=== PATIENT | male | born 1965 | race Hispanic/Latino ===

== ENCOUNTER 2024-03-07 10:30 | Emergency (ER) | payer SELFPAY ==
[2024-03-07 10:37] VITALS: BP 164/114
[2024-03-07 11:06] VITALS: BP 136/72
[2024-03-07 11:09] VITALS: BMI 47.9
[2024-03-07 11:19] LABS: % Basophils 0.9 % (0-2); % Eosinophils 5.5 % (0-6); % Immature Granulocytes 0.4 % (0-0.5); % Lymphocytes 32.7 % (20.5-51.1); % Monocytes 7.6 % (1.7-9.3); % Neutrophils 52.9 % (42.2-75.2); Absolute Basophils 0.1 10^3/uL (0-0.2); Absolute Eosinophils 0.4 10^3/uL (0-0.7); Absolute Lymphocytes 2.2 10^3/uL (1.2-3.4); Absolute Monocytes 0.5 10^3/uL (0.1-0.6); Absolute Neutrophils 3.5 10^3/uL (1.4-6.5); Hematocrit 44.8 % (39.0-52.0); Hemoglobin 15.6 g/dL (13.0-18.0); Mean Corp Hgb Conc. 34.8 g/dL (33.0-37.0); Mean Corpuscular Hgb 30.4 pg (27.0-31.0); Mean Corpuscular Volume 87.2 fL (80.0-94.0); Mean Platelet Volume 9.3 fL (7.4-10.4); Nucleated Red Blood Cells % 0 % (-); Platelet Count 232 10^3/uL (130-400); Red Blood Cell Count 5.14 10^6/uL (4.70-6.10); Red Cell Dist. Width 12.6 % (11.5-14.5); White Blood Cell Count 6.7 10^3/uL (4.8-10.8)
--- NOTE | 2024-03-07 11:34 | ED.GENMED ---
History of Present Illness
General
Chief Complaint: Chest Pain
Time Seen by Provider: 03/07/24 10:44
History of Present Illness
History of Present Illness:
58-year-old male with history of hypertension, diabetes presenting to the emergency department for episode of chest pain. Patient reports that he is a local truck driver for [employer], and prior to arrival he was in the car and had acute onset of midsternal chest
tightness symptoms lasted about 20 minutes, with associated nausea, some diaphoresis. Symptoms have since resolved. Denies known history of cardiac disease. Denies difficulty breathing. Denies any history of blood clots. Denies abdominal pain.
Denies any fever or cough. Denies additional acute medical complaints.
Phy Exam
Physical Exam
Physical Exam:
General: Well-appearing, no clinical signs of dehydration, nontoxic and in no acute distress
HEENT: protecting airway
Neck: appears supple
CV: Normal heart rate, regular rhythm
Resp: No accessory muscle use, no increased work of breathing, lungs clear to auscultation bilaterally
Abd: Soft and non-distended, no tenderness to palpation
Extremities: No deformities, no swelling
Neuro: alert, no focal neurologic deficit
: deferred
Rectal: deferred
Psych: Normal affect
Skin: Intact
Scores
Heart Score for Chest Pain Patients
STEMI patient?: No
History: Slightly or Non-Suspicious
ECG: Normal
Age: >45 - <65 years
Risk Factors: >/= 3 Risk Factors or History of CAD
Troponin: </= Normal Limit
Heart Score for Chest Pain Patients: 3
Heart Score Risk: 2.5% MACE over next 6 weeks
Course
Orders/Labs/Results
Orders:
Orders
03/07/24 10:31
Electrocardiogram (*1) Urgent
Reason for Study: Chest Pain
EKG- Treatment ONCE
03/07/24 11:06
CMP [Comprehensive Metabolic Panel] Urgent
Complete Blood Count/With Diff Urgent
Troponin I Urgent
03/07/24 14:00
Troponin I Urgent
Abnormal Lab Results
03/07/24
11:06
Glucose 140 H mg/dl
(70-99)
03/07/24 11:06
03/07/24 11:06
Vital Signs
Initial and Last Documented VS:
Initial Vital Signs
Temp Pulse Resp BP Pulse Ox
98.8 F 86 20 164/114 97
03/07/24 10:37 03/07/24 10:37 03/07/24 10:37 03/07/24 10:37 03/07/24 10:37
Last Documented Vital Signs
Temp Pulse Resp BP Pulse Ox
98.8 F 88 15 139/82 97
03/07/24 10:37 03/07/24 12:15 03/07/24 12:15 03/07/24 12:00 03/07/24 12:00
MDM/Problems Addressed
MDM/Problems Addressed:
58-year-old male with history of hypertension, diabetes, hyperlipidemia presenting to the emergency department for episode of chest tightness prior to arrival. Vital signs on arrival are significant for high blood pressure.
On exam, patient is resting comfortably, no acute distress, notes resolution of symptoms. EKG obtained, no STEMI criteria. No significant signs of acute ischemia. Patient however does have cardiac risk factors. For this reason we will obtain
laboratory analysis including troponin. Will continue to closely monitor
12:00 -initial troponin normal. Given patient's story and risk factors, will obtain second troponin.
12:20 -in discussion with patient, he is requesting to go home. He does not want to stay for the second troponin, and notes that he will follow-up with his acquisitions assistant. Patient is competent to make his own decisions, understands risks of not
staying for full recommended cardiac evaluation. Patient otherwise at this time is hemodynamically stable, improvement in his blood pressure. Strict return precautions were communicated to patient and patient verbalized understanding
*EKG
Interpreted by ED Provider?: Yes
EKG Intrepretation Date: 03/07/24
EKG Intrepretation Time: 11:37
Interpretation: normal
Comparison EKG: no comparison EKG present
Heart Rate: 90
Rate: normal
Rhythm: sinus
Rohwer: normal axis
Interval: normal interval
QRS Pattern: normal QRS
Ischemia: non-specific ST changes
*Critical Care Note
Total Time (30-74mins, 75-104mins- exclusive of procedures): Not Applicable
ED Attending Note
-
Portions of this chart may have been created with voice recognition software.� Occasional wrong word or��sound alike� substitutions may have occurred due to the inherent limitations of voice recognition software.
Discharge Plan
Departure
Referrals:
NONE,* [Family Provider] -
Interventions
Interventions:
*Risk Screen - Suicide Last Done: 03/07/24 10:37
*General Assessment Last Done: 03/07/24 11:09
*Neglect/Abuse Screening Last Done: 03/07/24 11:10
ED- Cardiac Assessment Last Done: 03/07/24 11:10
Discharge Date and Time
Print Language: CZECH
[2024-03-07 11:39] LABS: Troponin I < 0.012 ng/ml
[2024-03-07 11:40] LABS: ALT (SGPT) 43 U/L (0-50); AST (SGOT) 26 U/L (17-59); Albumin 4.6 g/dl (3.5-5.0); Alkaline Phosphatase 48 U/L (38-126); Blood Urea Nitrogen 18 mg/dl (9-20); Calcium 9.7 mg/dl (8.4-10.2); Carbon Dioxide 22 mmol/L (22-30); Chloride 99 mmol/L (98-107); Estimated Creatinine Clearance > 125 ml/min; Glucose 140 mg/dl (70-99); Potassium 4.4 mmol/L (3.5-5.1); Sodium 136 mmol/L (135-145); Total Bilirubin 0.5 mg/dl (0.2-1.3); Total Protein 7.3 g/dl (6.3-8.2); eGFR > 60.00
[2024-03-07 12:00] VITALS: BP 139/82
== END 2024-03-07 12:44 | disposition home or self-care (01) ==
LOC: EMR 10:30
PROVIDERS: Emergency Medicine; EMERGENCY PHYSICIAN Student in an Organized Health Care Education/Training Program
DX: R07.89 Other chest pain (principal); I10 Essential (primary) hypertension; E11.9 Type 2 diabetes mellitus without complications
CPT/HCPCS: 99284; 80053; 84484; 85025; 93005